=== PATIENT | male | born 1950 | race Hispanic/Latino ===

== ENCOUNTER 2017-10-04 17:41 | Emergency (ER) | payer OTHER, SELFPAY ==
[2017-10-04] MEDS ORDERED: NA CHLORIDE 0.9% 1,000 ML ONE (18:56)
[2017-10-04 18:59] LABS: Absolute Lymphocytes (CBC) 1.9 K/uL (0.7-4.9); Absolute Monocytes 0.6 K/uL (0.1-1.3); Absolute Neutrophil 6.5 K/uL (1.8-8.0); Basophils % 0.7 % (0-1.3); Eosinophils % 3.5 % (0-4.4); Hematocrit 47.9 % (39.6-49.0); Lymphocytes % 20.4 % (15.3-44.8); MCH 32.5 pg (27.0-35.0); MCV 93.3 fL (80-100); MPV 8.4 fL (7.6-11.3); Monocytes % 6.6 % (3.3-12.3); RBC Red Blood Cell Count 5.13 M/uL (4.33-5.43)
[2017-10-04 19:19] LABS: Albumin 4.2 g/dL (3.4-5.0); Bilirubin Direct 0.3 mg/dL (0-0.2); Bilirubin Total 1.1 mg/dL (0.2-1.0); Protein, Total 8.1 g/dL (6.4-8.2)
--- NOTE | 2017-10-04 20:09 | RAD REPORT ---
EXAM DESCRIPTION: CT - Abdomen Pelvis W Contrast - 10/04/2017 7:42 pm CLINICAL HISTORY: ABD PAIN<Reason For Exam>ABD PAIN COMPARISON: None. TECHNIQUE: Biphasic, helical CT imaging of the abdomen and pelvis was performed following 100 ml non -ionic IV contrast. Oral contrast was given. All CT scans are performed using dose optimization technique as appropriate and may include automated exposure control or mA/KV adjustment according to patient size. FINDINGS: No suspicious findings in the lung bases. The liver, spleen, and pancreas show no suspicious findings. Gallbladder is contracted. Low-density a reas in the central liver may be prominent biliary radicles. No underlying mass identified. Significa nce is doubtful. Symmetric renal function is seen with no hydronephrosis or suspicious renal mass. No pyelonephritis o r acute renal parenchymal process. Contracted urinary bladder shows no suspicious findings. Prostate gland and seminal vesicles are normal range. Fluid dilates the stomach. No gastric outlet obstruction, gastric wall thickening or mass. Duodenum i s distended. Proximal small bowel loops are dilated with mild wall thickening pattern. More distally the small bowel shows areas of normal diameter and distended small bowel all the way to the ileocecal valve. Moderate stool volume is seen in the colon. No colon wall thickening or mass. Acute colon pro cess is not identified. No free air, free fluid or inflammatory stranding. No mass or bulky lymphadenopathy. Patient has a very small umbilical hernia containing only fat. No adrenal abnormality. No suspicious bony findings. IMPRESSION: Multiple loops of dilated and distended small bowel with no single transition point. No acute colon finding. There is fluid dilation of the stomach. Prominent ileus or enteritis is favored over small bowel obstruction. Continued follow-up can be obta ined as clinical findings warrant. No free air or surgically emergent finding.
--- NOTE | 2017-10-04 20:41 | ER ---
Nurse's Notes [facility] Name: Mike Moore Age: 67 yrs Sex: Male : 1950 Arrival Date: 10/04/2017 Time: 17:47 Bed 30 Private MD: Diagnosis: Nausea;Unspecified abdominal pain Presentation: 10/04 18:06 Presenting complaint: Patient states: Generalize abdominal pain with nausea that aj started suddenly today after eating a sandwich. Patient states "I know I have food poisoning". Transition of care: patient was not received from another setting of care. Onset of symptoms was October 04, 2017. Risk Assessment: Do you want to hurt yourself or someone else? Patient reports no desire to harm self or others. Initial Sepsis Screen: Does the patient meet any 2 criteria? No. Patient's initial sepsis screen is negative. Does the patient have a suspected source of infection? No. Patient's initial sepsis screen is negative. Care prior to arrival: None. 18:06 Method Of Arrival: Ambulatory aj 18:06 Acuity: GALE 3 aj Triage Assessment: 18:07 General: Appears in no apparent distress. comfortable, Behavior is calm, cooperative, aj appropriate for age. Pain: Complains of pain in abdomen. Neuro: Level of Consciousness is awake, alert, obeys commands, Oriented to person, place, time, situation, Appropriate for age. Respiratory: Airway is patent Respiratory effort is even, unlabored, Respiratory pattern is regular, symmetrical. GI: Abdomen is flat, non-distended, Reports lower abdominal pain, upper abdominal pain, nausea. Derm: Skin is intact, is healthy with good turgor, Skin is pink, warm \\T\\ dry. normal. Historical: - Allergies: 18:07 No Known Allergies; aj - Home Meds: 18:07 lisinopril 20 mg Oral tab 1 tab once daily [Active]; aj - PMHx: 18:07 Hypertension; aj - PSHx: 18:07 None; aj - Immunization history:: Adult Immunizations up to date. - Social history:: Smoking status: Patient/guardian denies using tobacco. - Ebola Screening: : Patient negative for fever greater than or equal to 101.5 degrees Fahrenheit, and additional compatible Ebola Virus Disease symptoms Patient denies exposure to infectious person Patient denies travel to an Ebola-affected area in the 21 days before illness onset No symptoms or risks identified at this time. Screenin:24 Abuse screen: Denies threats or abuse. Denies injuries from another. Nutritional aj1 screening: No deficits noted. Tuberculosis screening: No symptoms or risk factors identified. 20:33 Fall Risk None identified. ak1 Assessment: 18:24 General: Appears in no apparent distress. uncomfortable, Behavior is calm, cooperative, aj1 appropriate for age. Pain: Complains of pain in right upper quadrant and left upper quadrant Pain does not radiate. Neuro: Level of Consciousness is awake, alert, obeys commands, Oriented to person, place, time, situation, Speech is normal, Facial symmetry appears normal. Cardiovascular: Patient's skin is warm and dry. Respiratory: Airway is patent Respiratory effort is even, unlabored, Respiratory pattern is regular, symmetrical. GI: Abdomen is flat, non-distended, Bowel sounds present X 4 quads. Abd is soft and non tender X 4 quads. Reports nausea, Patient currently denies diarrhea, vomiting. : No signs and/or symptoms were reported regarding the genitourinary system. EENT: No signs and/or symptoms were reported regarding the EENT system. Derm: No signs and/or symptoms reported regarding the dermatologic system. Skin is pink, warm \\T\\ dry. normal. Musculoskeletal: No signs and/or symptoms reported regarding the musculoskeletal system. Circulation, motion, and sensation intact. 20:33 Reassessment: pt given water for PO Challenge. pt tolerated water, no vomiting ak1 reported. ERP notified. Vital Signs: 18:07 BP 151 / 91; Pulse 58; Resp 16; Temp 98.6; Pulse Ox 99% on R/A; Weight 80.74 kg; Height aj 5 ft. 8 in. (172.72 cm); 20:01 BP 151 / 83; Pulse 53; Resp 16; Temp 98.4(O); Pulse Ox 99% on R/A; ak1 20:24 BP 133 / 74; Pulse 51; Resp 16; Pulse Ox 98% on R/A; ak1 18:07 Body Mass Index 27.06 (80.74 kg, 172.72 cm) aj ED Course: 17:47 Patient arrived in ED. es 18:07 Triage completed. aj 18:07 Arm band placed on left wrist. Patient placed in an exam room. aj 18:11 Akbar Ochoa PA is PHCP. cp 18:11 Thomas Kimbrough MD is Attending Physician. cp 18:19 Macey Andino, RN is Primary Nurse. aj1 18:24 Patient has correct armband on for positive identification. Bed in low position. Call aj1 light in reach. Side rails up X 1. Pulse ox on. NIBP on. 18:24 No provider procedures requiring assistance completed. aj1 18:30 Radiology exam delayed due to lab results not completed at this time. (BUN/Creatinine). jg6 18:30 Inserted saline lock: 20 gauge in right antecubital area, using aseptic technique. jp3 Blood collected. 18:40 Initial lab(s) drawn, by va, sent to lab. Urine collected: clean catch specimen, clear, jp3 alejandra colored, Amount Voided: 60mL. 18:48 Amylase, Serum Sent. jp3 18:48 Basic Metabolic Panel Sent. jp3 18:48 CBC with Diff Sent. jp3 18:49 Creatinine for Radiology Sent. jp3 18:49 Hepatic Function Sent. jp3 18:49 Lipase Sent. jp3 18:49 Urine Microscopic Only Sent. jp3 19:42 CT Abd/Pelvis - W/Contrast: no oral contrast In Process Unspecified. EDMS 19:50 CT completed. Patient tolerated procedure well. Patient moved back from CT. wa 20:46 IV discontinued, intact, bleeding controlled, No redness/swelling at site. Pressure ak1 dressing applied. Administered Medications: 18:56 Drug: NS 0.9% 1000 ml Route: IV; Rate: 1 bolus; Site: right antecubital; 20:33 Follow up: IV Status: Completed infusion ak1 Outcome: 20:40 Discharge ordered by . cp 20:41 Discharged to home ambulatory, with family. ak1 20:41 Condition: good 20:46 Discharge instructions given to patient, Instructed on discharge instructions, follow ak1 up and referral plans. medication usage, Demonstrated understanding of instructions, follow-up care, medications, Prescriptions given X 1. 20:46 Patient left the ED. ak1 Signatures: Dispatcher [employer] EDMS Macey Andino, RN RN aj1 Nicole Jarrett RN RN Kendra Gage Shelby, RN RN Alejandra Medina RN RN ak1 Page, Akbar, Josh Swain cp, Jacob jp3 Hiral Downs jg6
--- NOTE | 2017-10-04 20:41 | EDPHYS ---
Physician Documentation [facility] Name: Mike Moore Age: 67 yrs Sex: Male : 1950 Arrival Date: 10/04/2017 Time: 17:47 Bed 30 Private MD: ED Physician Thomas Kimbrough HPI: 10/04 18:26 This 67 yrs old Male presents to ER via Ambulatory with complaints of cp Abdominal Pain, Nausea. 18:30 The patient presents with abdominal pain mid abdomen. cp 18:30 Onset: The symptoms/episode began/occurred today, started shortly after eating sandwich cp . Associated signs and symptoms: Pertinent positives: nausea, Pertinent negatives: anorexia, constipation, diarrhea, dysuria, fever, vomiting. Historical: - Allergies: 18:07 No Known Allergies; aj - Home Meds: 18:07 lisinopril 20 mg Oral tab 1 tab once daily [Active]; aj - PMHx: 18:07 Hypertension; aj - PSHx: 18:07 None; aj - Immunization history:: Adult Immunizations up to date. - Social history:: Smoking status: Patient/guardian denies using tobacco. - Ebola Screening: : Patient negative for fever greater than or equal to 101.5 degrees Fahrenheit, and additional compatible Ebola Virus Disease symptoms Patient denies exposure to infectious person Patient denies travel to an Ebola-affected area in the 21 days before illness onset No symptoms or risks identified at this time. ROS: 18:30 Constitutional: Negative for body aches, chills, fever, poor PO intake. cp 18:30 Eyes: Negative for injury, pain, redness, and discharge. cp 18:30 ENT: Negative for drainage from ear(s), ear pain, sore throat, difficulty swallowing, difficulty handling secretions. 18:30 Cardiovascular: Negative for chest pain, edema, palpitations. 18:30 Respiratory: Negative for cough, shortness of breath, wheezing. 18:30 Abdomen/GI: Positive for abdominal pain, nausea, Negative for vomiting, diarrhea, constipation, abdominal distension, anorexia, black/tarry stool, rectal bleeding. 18:30 Back: Negative for pain at rest, pain with movement, radiated pain. 18:30 : Negative for urinary symptoms, testicular pain 18:30 Skin: Negative for cellulitis, rash. 18:30 Neuro: Negative for altered mental status, headache, weakness. 18:30 All other systems are negative. Exam: 18:35 Constitutional: The patient appears in no acute distress, alert, awake, cp non-diaphoretic, non-toxic, well developed, well nourished. 18:35 Head/Face: Normocephalic, atraumatic. cp 18:35 Eyes: Periorbital structures: appear normal, Pupils: equal, round, and reactive to light and accomodation, Extraocular movements: intact throughout, Conjunctiva: normal, no exudate, no injection, Sclera: no appreciated abnormality, Lids and lashes: appear normal, bilaterally. 18:35 ENT: External ear(s): are unremarkable, Ear canal(s): are normal, clear, TM's: bulging, is not appreciated, bilaterally, dullness, bilaterally, erythema, is not appreciated, bilaterally, Nose: is normal, Mouth: Lips: moist, Oral mucosa: pink and intact, moist, Posterior pharynx: Airway: no evidence of obstruction, patent, Uvula: midline, swelling, is not appreciated, erythema, is not appreciated, exudate, is not appreciated. 18:35 Neck: ROM/movement: is normal, is supple, without pain, no range of motions limitations, no nuchal rigidity. 18:35 Chest/axilla: Inspection: normal, Palpation: is normal, no crepitus, no tenderness. 18:35 Cardiovascular: Rate: bradycardic, Rhythm: regular, Edema: is not appreciated, JVD: is not appreciated. 18:35 Respiratory: the patient does not display signs of respiratory distress, Respirations: normal, no use of accessory muscles, no retractions, no splinting, no tachypnea, labored breathing, is not present, Breath sounds: are clear throughout, no decreased breath sounds, no stridor, no wheezing. 18:35 Abdomen/GI: Inspection: abdomen appears normal, Bowel sounds: active, all quadrants, Palpation: soft, in all quadrants, mild abdominal tenderness, in all quadrants, rebound tenderness, is not appreciated, voluntary guarding, is not appreciated, involuntary guarding, is not appreciated. 18:35 Back: pain, is absent, ROM is normal. 18:35 Skin: cellulitis, is not appreciated, no rash present. Vital Signs: 18:07 BP 151 / 91; Pulse 58; Resp 16; Temp 98.6; Pulse Ox 99% on R/A; Weight 80.74 kg; Height aj 5 ft. 8 in. (172.72 cm); 20:01 BP 151 / 83; Pulse 53; Resp 16; Temp 98.4(O); Pulse Ox 99% on R/A; ak1 20:24 BP 133 / 74; Pulse 51; Resp 16; Pulse Ox 98% on R/A; ak1 18:07 Body Mass Index 27.06 (80.74 kg, 172.72 cm) aj MDM: 18:11 Patient medically screened. cp 19:00 Differential diagnosis: appendicitis, bowel obstruction, cholecystitis, Cholelithiasis, cp diverticulitis, non-specific abd pain, pancreatitis, Ureterolithiasis, urinary tract infection. 20:38 Data reviewed: vital signs, nurses notes, lab test result(s), radiologic studies, CT cp scan, and as a result, I will discharge patient. 20:39 Counseling: I had a detailed discussion with the patient and/or guardian regarding: the cp historical points, exam findings, and any diagnostic results supporting the discharge/admit diagnosis, lab results, radiology results, to return to the emergency department if symptoms worsen or persist or if there are any questions or concerns that arise at home, VSS. Reexamination of abdomen is non-tender, no distension noted. Patient reports symptoms markedly improved. Will discharge to home for continued monitoring. 10/04 18:27 Order name: Amylase, Serum; Complete Time: 20:13 cp 10/04 18:27 Order name: Basic Metabolic Panel; Complete Time: 20:13 cp 10/04 20:20 Interpretation: Normal except: GFR 67. cp 10/04 18:27 Order name: CBC with Diff; Complete Time: 20:13 cp 10/04 18:27 Order name: Creatinine for Radiology; Complete Time: 20:13 cp 10/04 18:27 Order name: Hepatic Function; Complete Time: 20:13 cp 10/04 20:20 Interpretation: Normal except: BILIT 1.1; BILID 0.3; GLOB 3.9. cp 10/04 18:27 Order name: Lipase; Complete Time: 20:13 cp 10/04 18:27 Order name: Urine Microscopic Only cp 10/04 18:27 Order name: IV Saline Lock; Complete Time: 18:49 cp 10/04 18:27 Order name: Labs collected and sent; Complete Time: 18:49 10/04 18:27 Order name: Urine Dipstick-Ancillary (obtain specimen); Complete Time: 18:49 10/04 18:27 Order name: CT Abd/Pelvis - W/Contrast: no oral contrast; Complete Time: 20:13 10/04 20:13 Interpretation: Report reviewed. 10/04 19:04 Order name: Urine Dipstick--Ancillary (enter results) nj 10/04 20:23 Order name: PO challenge; Complete Time: 20:33 cp Administered Medications: 18:56 Drug: NS 0.9% 1000 ml Route: IV; Rate: 1 bolus; Site: right antecubital; 20:33 Follow up: IV Status: Completed infusion ak1 Disposition: 10/05 08:09 Co-signature as Attending Physician, Thomas Kimbrough MD. rn Disposition: 10/04/17 20:40 Discharged to Home. Impression: Nausea, Unspecified abdominal pain. - Condition is Stable. - Discharge Instructions: Abdominal Pain, Adult, Nausea, Adult. - Prescriptions for Zofran 4 mg Oral Tablet - take 1 tablet by ORAL route every 12 hours As needed; 20 tablet. - Medication Reconciliation Form, Thank You Letter, Antibiotic Education, Prescription Opioid Use form. - Follow up: Emergency Department; When: As needed; Reason: Worsening of condition. - Problem is new. - Symptoms have improved. Signatures: Dispatcher [employer] EDMS Nicole Jarrett RN RN aj Nieto, Roman, MD MD rn Smirch, Shelby, RN RN ss Krenek, Amber, RN RN ak1 kAbar Ochoa PA PA Corrections: (The following items were deleted from the chart) 10/04 20:46 20:40 10/04/2017 20:40 Discharged to Home. Impression: Nausea; Unspecified abdominal ak1 pain. Condition is Stable. Forms are Medication Reconciliation Form, Thank You Letter, Antibiotic Education, Prescription Opioid Use. Follow up: Emergency Department; When: As needed; Reason: Worsening of condition. Problem is new. Symptoms have improved. cp 21:44 10/03 18:35 Constitutional: The patient appears in no acute distress, alert, awake, cp non-diaphoretic, non-toxic, well developed, well nourished, cp 10/04 20:10/03 18:35 Head/Face: Normocephalic, atraumatic. cp cp 10/04 20:10/03 18:35 Eyes: Periorbital structures: appear normal, Conjunctiva: normal, no cp exudate, no injection, Sclera: no appreciated abnormality, Lids and lashes: appear normal, bilaterally, cp 10/04 20:10/03 18:35 ENT: External ear(s): are unremarkable, Nose: is normal, Mouth: Lips: cp moist, Oral mucosa: pink and intact, moist, Posterior pharynx: is normal, airway is patent, no erythema, no exudate, cp 10/04 20:10/03 18:35 Neck: ROM/movement: is normal, is supple, without pain, no range of motions cp limitations, no nuchal rigidity, cp 10/04 20:10/03 18:35 Chest/axilla: Inspection: normal, Palpation: is normal, no crepitus, no cp tenderness, cp 10/04 20:10/03 18:35 Cardiovascular: Rate: bradycardic, Rhythm: regular, cp cp 10/04 20:10/03 18:35 Respiratory: the patient does not display signs of respiratory distress, cp Respirations: normal, no use of accessory muscles, no retractions, no splinting, no tachypnea, labored breathing, is not present, Breath sounds: are clear throughout, no decreased breath sounds, no stridor, no wheezing, cp 10/04 20:10/03 18:35 Abdomen/GI: Inspection: abdomen appears normal, Bowel sounds: active, all cp quadrants, Palpation: soft, in all quadrants, mild abdominal tenderness, in all quadrants, rebound tenderness, is not appreciated, voluntary guarding, is not appreciated, involuntary guarding, is not appreciated, cp 10/04 20:10/03 18:35 Back: pain, is absent, ROM is normal, cp cp 10/04 20:10/03 18:35 Skin: cellulitis, is not appreciated, no rash present. cp cp 10/04 20:10/03 18:35 Neuro: Orientation: to person, place \T\ time. Mentation: lucid, able to cp follow commands, Cerebellar function: is grossly normal, Motor: moves all fours, strength is normal, Sensation: no obvious gross deficits, cp
[2017-10-04 21:23] LABS: Urine Blood NEGATIVE (NEG); Urine Glucose NEGATIVE (NEG); Urine Protein NEGATIVE (NEG); Urine pH 6.5 (5.0-7.0)
[2017-10-04 21:33] LABS: Urine Bacteria <20 /HPF (NONE SEEN); Urine Culture Reflex Order NOT NEEDED; Urine RBC <5 /HPF (NONE SEEN)
== END 2017-10-04 20:46 | disposition home or self-care (01) ==
LOC: ER 17:41
DX: R11.0 Nausea (principal); R10.9 Unspecified abdominal pain; I10 Essential (primary) hypertension
CPT/HCPCS: 36415; 74177; 80048; 80076; 82150; 83690; 85025; 96360; 96361; 99284; J7030; Q9967; 81003; 81015